=== PATIENT | male | born 1925 | race Caucasian/White ===

== ENCOUNTER → 2017-06-13 | Outpatient (CLI) | payer OTHER ==
[~2017-06-13] MED LIST: ACET-1256 PO; ALPR-411 PO; ARTIOIN OP; ASPI81TA28 PO; ATOR-26 PO; CMD5 PO; DOCU100C31 PO; FEXO1TAB49 PO; FINA5TAB PO; FLUOROURACIL TOP; FRS/40 PO; IPRASOL4 INH; KETO0.024 OP; LEVO88TA3 PO; METO25TA3 PO; NTRGSL/4 SL; POLY335019 PO; RANI150T85 PO; SALI1SPR15 NAE; TAMS0.4C38 PO; WARF1TAB PO
== END | disposition home or self-care (01) ==
LOC: C.PATHSPEC 15:51
PROVIDERS: ATTEND Physician Assistant
DX: D09.8 Carcinoma in situ of other specified sites (principal)